=== PATIENT | female | born 1990 | race African-American/Black ===

== ENCOUNTER 2017-04-28 11:26 | Emergency (ER) | payer OTHER ==
[~2017-04-28] VITALS: Ht 162.6 cm; Wt 109.8 kg
[~2017-04-28 11:26] MED LIST: BACTRIM DS TAB1 EACH PO; ENALAPRIL MALE2.5 M1 PO; FLAGYL500 MG PO; IBUPROFEN 800800 M1 PO; LISINOPRIL5 MG PO; LORTAB 5 MG/5001 TA1 PO; NO HOME MEDS; NOHOMEMEDICATIONS; ULTRAM 50MG TAB50 MG PO
[2017-04-28 11:39] LABS: URINE BILIRUBIN NEGATIVE (Negative); URINE BLOOD TRACE (Negative); URINE COLOR YELLOW; URINE GLUCOSE-RANDOM* NEGATIVE (Negative); URINE KETONES NEGATIVE (Negative); URINE NITRITE NEGATIVE (Negative); URINE PROTEIN (DIPSTICK) NEGATIVE (Negative); URINE UROBILINOGEN 0.2 E.U./dl (0.2-1.0)
[2017-04-28 12:37] LABS: ABSOLUTE NEUTROPHILS 9.4 thou/uL (1.4-8.2); BASOPHILS 0.6 % (0.0-2.0); EOSINOPHILS 0.7 % (0.0-3.0); HEMATOCRIT 40.3 % (37.0-47.0); HEMOGLOBIN 13.8 gm/dL (12.0-15.0); LYMPHOCYTES 14.8 % (24.0-44.0); MCH 29.5 pg (26.0-34.0); MCHC 34.2 g/dL (28.0-37.0); MCV 86.2 fL (80.0-100.0); MONOCYTES 4.9 % (1.0-8.0); PLATELET COUNT 324 thou/uL (150-400); RBC 4.68 mil/uL (4.20-5.00); RDW 13.8 % (10.5-14.5); WBC 11.8 thou/uL (4.0-11.0)
[2017-04-28 12:43] LABS: MANUAL DIFF NO
[2017-04-28 12:45] LABS: CALCIUM 9.5 mg/dL (8.5-10.1); CREATININE 0.7 mg/dL (0.6-1.0); POTASSIUM 3.8 mmol/L (3.5-5.1)
[2017-04-28 12:49] LABS: TOTAL BILIRUBIN 0.4 mg/dL (<0.1-1.0)
[2017-04-28 14:19] VITALS: BP 135/89
== END 2017-04-28 14:21 | disposition home or self-care (01) ==
LOC: ER 11:26
PROVIDERS: Emergency Medicine; Physician Assistant
DX: N94.6 Dysmenorrhea, unspecified (principal); I10 Essential (primary) hypertension; F31.9 Bipolar disorder, unspecified; Z88.8 Allergy status to other drugs, medicaments and biological substances

== ENCOUNTER 2018-02-06 10:53 | Emergency (ER) | payer OTHER ==
[~2018-02-06] VITALS: Ht 165.1 cm; Wt 113.4 kg
[2018-02-06 11:03] VITALS: BP 158/115
[2018-02-06] MEDS ORDERED: IBUPROFEN 800800 M1 PO (12:01)
[2018-02-06] MEDS ORDERED: AMOXICILLIN 50500 MG PO (12:01)
== END 2018-02-06 12:13 | disposition home or self-care (01) ==
LOC: ER 10:53
DX: J02.0 Streptococcal pharyngitis (principal); F17.210 Nicotine dependence, cigarettes, uncomplicated; Z88.8 Allergy status to other drugs, medicaments and biological substances